=== PATIENT | female | born 1990 | race Asian ===

== ENCOUNTER 2020-01-15 02:39 | Emergency (ER) | payer OTHER ==
--- NOTE | 2020-01-15 03:16 | ED ---
Lower Extremity - HPI Summary HPI Summary: Patient is a 29 y/o F presenting to [facility] with complaints of left ankle pain. She states that around 1600 01/14/20, she was running when she tripped and fell. Pain onset afterwards. She states that she could not bear weight immediately after the fall and called a friend to come get her. While in her apartment, her pain improved slightly and she was able to limp around. However, the pain later worsened. Patient came to ED for evaluation. Home medications and allergies are reviewed. On vitals, temp is 98 F, no fever. - History of Current Complaint Stated Complaint: LT ANKLE PAIN PER PT Hx Obtained From: Patient Mechanism Of Injury: Fall From A Standing Position Onset of Pain: Hours, Prior to Arrival Onset/Duration: Still Present Severity Initially: Moderate Severity Currently: Moderate Pain Intensity: 6 Pain Scale Used: 0-10 Numeric Timing: Constant, Lasting Hours Location: Is Discrete @ - left ankle Associated Signs And Symptoms: Positive: Other - left ankle pain - Allergies/Home Medications Allergies/Adverse Reactions: Allergies Allergy/AdvReac Type Severity Reaction Status Date / Time No Known Allergies Allergy Verified 01/15/20 02:43 PMH/Surg Hx/FS Hx/Imm Hx Sensory History: Denies: Hx Legally Blind, Hx Deafness Opthamlomology History: Denies: Hx Legally Blind EENT History: Denies: Hx Deafness - Immunization History Date of Influenza Vaccine: none Infectious Disease History: No Infectious Disease History: Reports: Traveled Outside the [place] in Last 30 Days - [place] - Family History Known Family History: Negative: Diabetes - Social History Alcohol Use: Occasionally Substance Use Type: Reports: None Smoking Status (MU): Never Smoked Tobacco Review of Systems Negative: Fever - On vitals, temp is 98 F, no fever. Positive: Myalgia - left ankle All Other Systems Reviewed And Are Negative: Yes Physical Exam - Summary Physical Exam Summary: Appearance: Well-appearing, Well-nourished, lying in bed comfortable Skin: Warm, dry, no obvious rash Eyes: sclera anicteric, no conjunctival pallor HENT: mucous membranes moist Neck: deferred Respiratory: No signs of respiratory distress Cardiovascular: Appears well perfused, pulses are nml Abdomen: deferred Musculoskeletal: Swelling and tenderness to lateral malleolus of the left ankle without deformity noted Neurological: Awake and alert, mentation is normal, speech is fluent and appropriate Psychiatric: affect is normal, does not appear anxious or depressed Triage Information Reviewed: Yes Vital Signs On Initial Exam: Initial Vitals Temp Pulse Resp BP Pulse Ox 98 F 91 15 110/76 97 01/15/20 02:42 01/15/20 02:42 01/15/20 02:42 01/15/20 02:42 01/15/20 02:42 Vital Signs Reviewed: Yes Procedures - Sedation Patient Received Moderate/Deep Sedation with Procedure: No Diagnostics - Vital Signs Vital Signs Temp Pulse Resp BP Pulse Ox 01/15/20 02:42 98 F 91 15 110/76 97 - Laboratory Lab Statement: Any lab studies that have been ordered have been reviewed, and results considered in the medical decision making process. - Radiology LEFT ANKLE X-RAY Radiology Interpretation Completed By: ED Physician Summary of Radiographic Findings: No fracture or dislocation noted, pending official report. Lower Extremity Course/Dx - Course Course Of Treatment: Patient is a 29 y/o F presenting to [facility] with complaints of left ankle pain. She states that around 1600 01/14/20, she was running when she tripped and fell. Pain onset afterwards. She states that she could not bear weight immediately after the fall and called a friend to come get her. While in her apartment, her pain improved slightly and she was able to limp around. However, the pain later worsened. Musculoskeletal: Swelling and tenderness to lateral malleolus of the left ankle without deformity noted. Left ankle x-ray showed no fracture or dislocation. Patient was given crutches and instructed on how to use them. She was discharged to home. - Diagnoses Provider Diagnoses: Left ankle sprain Discharge ED - Sign-Out/Discharge Documenting (check all that apply): Patient Departure - discharge - Discharge Plan Condition: Stable Disposition: HOME - Attestation Statements Document Initiated by Scribe: Yes Documenting Scribe: ELIUD BARKER Provider For Whom Marilynnibmaldonado is Documenting (Include Credential): JUSTINA HERBERT MD Scribe Attestation: ELIUD Wong, scribed for JUSTINA HERBERT MD on 01/15/20 at 0320. Status of Scribe Document: Ready
[2020-01-15 03:27] VITALS: BP 97/74
== END 2020-01-15 03:20 | disposition home or self-care (01) ==
LOC: ED 02:39
DX: S93.402A Sprain of unspecified ligament of left ankle, initial encounter (principal); W01.0XXA Fall on same level from slipping, tripping and stumbling without subsequent striking against object, initial encounter; Y93.02 Activity, running; Y92.9 Unspecified place or not applicable
CPT/HCPCS: 99282